=== PATIENT | male | born 1950 | race Caucasian/White ===

== ENCOUNTER 2021-04-24 09:51 | Outpatient (CLI) | payer MEDICARE, OTHER | END 2021-04-24 09:52 | disposition home or self-care (01) | LOC: CSHULT 09:51 | PROVIDERS: ATTEND Internal Medicine | DX: I72.3 Aneurysm of iliac artery (principal) | CPT/HCPCS: 76706 ==

== ENCOUNTER 2022-12-21 08:22 | Outpatient (CLI) | payer MEDICARE ==
[2022-12-21] MEDS ORDERED: Magnevist 469MG/ML 20 ML VIAL ONE (12:18)
== END 2022-12-21 08:23 | disposition home or self-care (01) ==
LOC: CSHMRI 08:22
PROVIDERS: ATTEND Urology
DX: C61 Malignant neoplasm of prostate (principal); N40.2 Nodular prostate without lower urinary tract symptoms
CPT/HCPCS: 72197; 82565; A9579

== ENCOUNTER 2023-06-13 07:23 | Outpatient (CLI) | payer MEDICARE | END 2023-06-13 07:24 | disposition home or self-care (01) | LOC: CSHULT 07:23 | PROVIDERS: ATTEND Internal Medicine | DX: I72.3 Aneurysm of iliac artery (principal); I77.811 Abdominal aortic ectasia | CPT/HCPCS: 76775 ==

== ENCOUNTER 2025-02-08 08:57 | Outpatient (CLI) | payer MEDICARE ==
[2025-02-08 10:18] LABS: Estimated GFR - POC 64.0
== END 2025-02-08 08:58 | disposition home or self-care (01) ==
LOC: CSHMRI 08:57
PROVIDERS: ATTEND Urology
DX: C61 Malignant neoplasm of prostate (principal); N40.2 Nodular prostate without lower urinary tract symptoms
CPT/HCPCS: 36415; 72197; 82565